=== PATIENT | female | born 1965 | race Caucasian/White ===

== ENCOUNTER 2017-03-02 14:25 | Emergency (ER) | payer OTHER ==
--- NOTE | 2017-03-02 15:09 | DIAGNOSTIC IMAGING REPORT ---
PROCEDURE: XR CHEST 1 VIEW INDICATION: CHEST PAIN TECHNIQUE: Portable AP view 03:00 p.m. COMPARISON: 02/28/2012 chest FINDINGS: Lungs are clear. Heart and mediastinum are normal. Thorax is normal. IMPRESSION: 1. Negative chest.
--- NOTE | 2017-03-02 15:58 | ED ORDER SUMMARY ---
..... Patient: KAPIL OWENS OrderSheet [facility] VisitID: [id number] [address] [place] [address] 51y, F Registration Date/Time: 03/02/2017 ORDER SHEET Weight: 104.3 kg (stated) Allergies: Vicodin GENERAL ORDERS: Chest 1V Urgent (14:47 03/02/2017 HBivens A.R.N.P.) (Ack 14:49 IJurca ER Tech1) (15:26 DDean R.N.) Park Maintenance Technician (Continuous) (14:47 03/02/2017 HBivens A.R.N.P.) (Ack 14:49 IJurca ER Tech1) (15:26 DDean R.N.) CBC w Diff Urgent (14:47 03/02/2017 HBivens A.R.N.P.) (Ack 14:49 IJurca ER Tech1) (15:16 DDean R.N.) CMP Urgent (14:47 03/02/2017 HBivens A.R.N.P.) (Ack 14:49 IJurca ER Tech1) (15:16 DDean R.N.) CPK Urgent (14:47 03/02/2017 HBivens A.R.N.P.) (Ack 14:49 IJurca ER Tech1) (15:16 DDean R.N.) Troponin-I Urgent (14:47 03/02/2017 HBivens A.R.N.P.) (Ack 14:49 IJurca ER Tech1) (15:16 DDean R.N.) Serum Qualitative Urgent (14:47 03/02/2017 HBivens A.R.N.P.) (Ack 14:49 IJurca ER Tech1) (15:17 DDean R.N.) EKG - ER Stat (14:47 03/02/2017 HBivens A.R.N.P.) (Ack 14:49 IJurca ER Tech1) (15:22 RKaruga) TSH Urgent (14:51 03/02/2017 HBivens A.R.N.P.) (Ack 14:54 [facility]) (15:16 DDean R.N.) MEDICATION ORDERS: IV FLUIDS: IV Saline Lock (14:47 03/02/2017 Berhane A.R.N.P.) (Ack 15:02 DDean R.N.) (15:17 DDean R.N.) ORDER SHEET NOTES: [Electronically signed by Natasha Butler R.N. (16:10 03/02/2017)] [Electronically signed by Kaylee aJne A.R.N.P. (18:11 03/02/2017)] [Electronically locked/signed by Natasha Butler R.N. (16:10 03/02/2017)]
--- NOTE | 2017-03-02 15:58 | ED ORDER SUMMARY ---
..... Patient: KAPIL OWENS OrderSheet [facility] VisitID: [id number] [address] [place] [address] 51y, F Registration Date/Time: 03/02/2017 ORDER SHEET Weight: 104.3 kg (stated) Allergies: Vicodin GENERAL ORDERS: Chest 1V Urgent (14:47 03/02/2017 HBivens A.R.N.P.) (Ack 14:49 IJurca ER Tech1) (15:26 DDean R.N.) Electrophysiology Scientist (Continuous) (14:47 03/02/2017 HBivens A.R.N.P.) (Ack 14:49 IJurca ER Tech1) (15:26 DDean R.N.) CBC w Diff Urgent (14:47 03/02/2017 HBivens A.R.N.P.) (Ack 14:49 IJurca ER Tech1) (15:16 DDean R.N.) CMP Urgent (14:47 03/02/2017 HBivens A.R.N.P.) (Ack 14:49 IJurca ER Tech1) (15:16 DDean R.N.) CPK Urgent (14:47 03/02/2017 HBivens A.R.N.P.) (Ack 14:49 IJurca ER Tech1) (15:16 DDean R.N.) Troponin-I Urgent (14:47 03/02/2017 HBivens A.R.N.P.) (Ack 14:49 IJurca ER Tech1) (15:16 DDean R.N.) Serum Qualitative Urgent (14:47 03/02/2017 HBivens A.R.N.P.) (Ack 14:49 IJurca ER Tech1) (15:17 DDean R.N.) EKG - ER Stat (14:47 03/02/2017 HBivens A.R.N.P.) (Ack 14:49 IJurca ER Tech1) (15:22 RKaruga) TSH Urgent (14:51 03/02/2017 HBivens A.R.N.P.) (Ack 14:54 [facility]) (15:16 DDean R.N.) MEDICATION ORDERS: IV FLUIDS: IV Saline Lock (14:47 03/02/2017 Berhane A.R.N.P.) (Ack 15:02 DDean R.N.) (15:17 DDean R.N.) ORDER SHEET NOTES: [Electronically signed by Natasha Butler R.N. (16:10 03/02/2017)] [Electronically signed by Kaylee Jane A.R.N.P. (18:11 03/02/2017)] [Electronically locked/signed by Natasha Butler R.N. (16:10 03/02/2017)]
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
--- NOTE | 2017-03-02 18:11 | ED DISCHARGE INSTRUCTIONS ---
Patient: KAPIL OWENS General Instructions [facility] VisitID: [id number] [address] [place] [address] 51y, F Registration Date/Time: 03/02/2017 Normal exam upon presentation, while in the ED and at discharge. INSTRUCTIONS Warnings: GENERAL WARNINGS: Return or contact your physician immediately if your condition worsens or changes unexpectedly, if not improving as expected, or if other problems arise. Specifically return if problem worsens. Follow-up: Follow up with your doctor in about two days even if well. Call for an appointment. Summary of care provided to patient. Understanding of the discharge instructions verbalized by patient. ADDITIONAL INFORMATION Normal Exam [6Yr - Adult] Based on your or your child's exam today, there are no signs of illness or injury. Be assured that the symptoms that worried you are normal. They do not suggest any illness requiring testing or treatment at this time. Home Care: You (or your child) can return to normal activities and diet. If you or your child have new or unusual symptoms not already discussed today, contact the doctor. Follow Up with the doctor for the next routine appointment. For more information: For childrens health information: www.kidshealth.org For adult health information: www.[facility].org You have been given the following additional information: Normal Exam, (Child) (Adult) (Electronically signed by Kaylee Jane A.R.N.P. 03/02/2017 18:11)
--- NOTE | 2017-03-02 18:11 | ED MAR SUMMARY ---
..... Medication Administration Record [facility] [address] [place], [place] [id number] Patient: KAPIL OWENS Visit ID: [id number] 51y, F Weight: 104.3 kg Height/Length: 68 in BMI: 35 ALLERGIES: Vicodin
--- NOTE | 2017-03-02 18:11 | ED DISCHARGE INSTRUCTIONS ---
Patient: KAPIL OWENS General Instructions [facility] VisitID: [id number] [address] [place] [address] 51y, F Registration Date/Time: 03/02/2017 Normal exam upon presentation, while in the ED and at discharge. INSTRUCTIONS Warnings: GENERAL WARNINGS: Return or contact your physician immediately if your condition worsens or changes unexpectedly, if not improving as expected, or if other problems arise. Specifically return if problem worsens. Follow-up: Follow up with your doctor in about two days even if well. Call for an appointment. Summary of care provided to patient. Understanding of the discharge instructions verbalized by patient. ADDITIONAL INFORMATION Normal Exam [6Yr - Adult] Based on your or your child's exam today, there are no signs of illness or injury. Be assured that the symptoms that worried you are normal. They do not suggest any illness requiring testing or treatment at this time. Home Care: You (or your child) can return to normal activities and diet. If you or your child have new or unusual symptoms not already discussed today, contact the doctor. Follow Up with the doctor for the next routine appointment. For more information: For childrens health information: www.kidshealth.org For adult health information: www.[facility].org You have been given the following additional information: Normal Exam, (Child) (Adult) (Electronically signed by Kaylee Jane A.R.N.P. 03/02/2017 18:11)
--- NOTE | 2017-03-02 18:11 | ED MAR SUMMARY ---
..... Medication Administration Record [facility] [address] [place], [place] [id number] Patient: KAPIL OWENS Visit ID: [id number] 51y, F Weight: 104.3 kg Height/Length: 68 in BMI: 35 ALLERGIES: Vicodin
--- NOTE | 2017-03-02 18:11 | ED MED RECONCILIATION SUMMARY ---
Patient: KAPIL OWENS Medication Reconciliation Report [facility] VisitID: [id number] [address] [place] [place] [address] 51y, F Registration Date/Time: 03/02/2017 Weight: 104.3 kg Height/Length: 68 in. BMI: 35.0 ALLERGIES: Vicodin The patient's Home Medications are listed below: THE FOLLOWING MEDICATIONS NEED TO BE RECONCILED: ASA Oral 325mg , daily Ibuprofen Oral 400 mg, PRN The source(s) of the original Home Medication information: Not obtained. The following Medications were given to the patient in the Emergency Department: None. The following Medications were prescribed to the patient: None.
--- NOTE | 2017-03-02 18:11 | ED MED RECONCILIATION SUMMARY ---
Patient: KAPIL OWENS Medication Reconciliation Report [facility] VisitID: [id number] [address] [place] [place] [address] 51y, F Registration Date/Time: 03/02/2017 Weight: 104.3 kg Height/Length: 68 in. BMI: 35.0 ALLERGIES: Vicodin The patient's Home Medications are listed below: THE FOLLOWING MEDICATIONS NEED TO BE RECONCILED: ASA Oral 325mg , daily Ibuprofen Oral 400 mg, PRN The source(s) of the original Home Medication information: Not obtained. The following Medications were given to the patient in the Emergency Department: None. The following Medications were prescribed to the patient: None.
== END 2017-03-02 16:08 | disposition home or self-care (01) ==
LOC: ED SRH 14:25
DX: R20.2 Paresthesia of skin (principal); I25.2 Old myocardial infarction; Z79.82 Long term (current) use of aspirin; F17.210 Nicotine dependence, cigarettes, uncomplicated; Z88.5 Allergy status to narcotic agent
CPT/HCPCS: 90100; 90616; 92610; 93140; 95059; 98428